=== PATIENT | female | born 1980 | race Caucasian/White ===

== ENCOUNTER → 2016-11-29 | Outpatient (CLI) | payer OTHER ==
[~2016-11-29] MED LIST: ALBU1AER9 INH; AMT50 PO; ATOR-24 PO; BUPRTAB51 PO; DICY1TAB25 PO; DIVA500T59 PO; FURO20TA PO; GEMF600T3 PO; INSU1.2I INJ; LEVO50TA PO; LIRA18IN SQ; LSN40 PO; METO-217 PO; METO1TAB54 PO; NVLGI/PEN SQ; OXYC-106 PO; POTA-327 PO; PRLSR20 PO; PRM625 PO; RANI300T2 PO; SIME1CAP PO; SITA50TA9 PO
[2016-11-29 17:52] LABS: CHOLESTEROL/HDL RATIO 13.6
== END | disposition home or self-care (01) ==
LOC: C.LAB1850 16:06
PROVIDERS: ATTEND Internal Medicine Cardiovascular Disease
DX: R60.9 Edema, unspecified (principal); E78.5 Hyperlipidemia, unspecified; E78.1 Pure hyperglyceridemia

== ENCOUNTER → 2016-12-03 | Outpatient (CLI) | payer OTHER | END | disposition home or self-care (01) | LOC: C.LABSPEC 09:14 | PROVIDERS: ATTEND Physician Assistant | DX: E11.9 Type 2 diabetes mellitus without complications (principal) ==

== ENCOUNTER 2017-07-11 09:46 | Day surgery (SDC) | payer OTHER ==
[2017-06-11 13:23] VITALS: BMI 39.0
[2017-06-30 10:57] VITALS: BMI 38.0
--- NOTE | 2017-07-10 08:51 | HISTORY & PHYSICAL EXAMINATION ---
DATE OF ADMISSION: 07/11/2017 CHIEF COMPLAINT: AC joint arthritis of the left shoulder. HISTORY OF PRESENT ILLNESS: Preethi is a 37-year-old female whom I have been seeing in the office with chronic left shoulder pain. It has been hurting her for over a year. Clinical examination and MRI were diagnostic for AC joint arthritis and external impingement of the left shoulder. After failing extensive conservative treatment including multiple injections, she has elected to proceed with a left shoulder arthroscopy. PAST MEDICAL HISTORY: Significant for non-insulin dependent diabetes, hyperlipidemia, hypertension, COPD and sleep apnea, she sleeps with oxygen at night, seizures, depression, hypothyroidism, obesity, GERD. MEDICATIONS: Include metformin 1000 mg twice a day, Reglan 5 mg as needed, Janumet 50 mg twice a day, prednisone 20 mg twice a day, albuterol 1 puff 4 times a day as needed, Celexa 10 mg daily, Florastor 250 mg twice a day, Singulair 10 mg at night, Lipitor 40 mg daily, Combivent inhaler twice a day, gemfibrozil 600 mg twice a day, Bentyl 20 mg twice a day, Naprosyn twice a day, baclofen twice a day as needed, Zantac 300 mg at night, Lyrica 150 mg twice a day, Victoza 1.8 mg once a day, omeprazole 40 mg daily, Carafate 1 gram 4 times a day, Depakote 500 mg 3 tabs at night, Zoloft 50 mg daily, trazodone 150 mg as needed, NovoLog 24 units with each meal, Wellbutrin 300 mg twice a day, Lasix 40 mg twice a day as needed, Synthroid 50 mcg daily, Mobic 15 mg as needed, Premarin daily, Lexapro 10 mg daily. ALLERGIES: INCLUDE AUGMENTIN, CIPRO, DROPERIDOL. PAST SURGICAL HISTORY: Significant for tonsillectomy, breast augmentation, appendectomy, cholecystectomy, hysterectomy and surgery to her left foot. SOCIAL HISTORY: She smokes a pack a day. Denies any alcohol or drug use. REVIEW OF SYSTEMS: She complains mostly of left shoulder pain. All other pertinent review of systems are negative. PHYSICAL EXAMINATION: GENERAL: She is awake, alert and oriented x3. She is in no apparent distress. She is very pleasant. HEENT: Pupils equal, round and reactive to light. Extraocular motion intact. Oral mucosa is pink and moist. HEART: Regular rate per radial pulse. LUNGS: Jemma symmetrically bilaterally with no audible breath sounds. ABDOMEN: Soft, nontender, nondistended. MUSCULOSKELETAL: On physical examination of the left shoulder, she has about 140 degrees of forward flexion and 140 degrees of abduction. She has 5/5 muscle strength throughout. She has negative belly press test. She has a lot of tenderness to palpation of the AC joint and subacromial space. MRI of the left shoulder does show signs of AC joint arthritis. The rotator cuff is intact. IMPRESSION: Acromioclavicular joint arthritis of the left shoulder with external impingement. PLAN: We will proceed with a left shoulder arthroscopy to include decompression and distal clavicle resection. Postoperatively, she will be placed in an arm sling and discharged to home on oral pain medications.
[~2017-07-11] VITALS: Ht 170.2 cm; Wt 110.5 kg
[~2017-07-11 09:46] MED LIST changes: -ALBU1AER9 INH; -AMT50 PO; +ATV/1 PO; -BUPRTAB51 PO; +CETI10TA84 PO; +CLINDAMYCIN 600 MG/54 ML D5W 54 ML IV SCH; +DEXAMETHASONE SOD INJ 4 MG/ML VIAL ONE; -DICY1TAB25 PO; +DICY20TA35 PO; +DSY/150 PO; +FAMOTIDINE 20 MG TAB PO SCH; +FLUO20CA35 PO; +FRS/40 PO; -FURO20TA PO; +INSDGI SC; -INSU1.2I INJ; +LACTATED RINGER'S 1000ML 1,000 ML IV SCH; +LACTATED RINGER'S 1000ML IV SCH; -LEVO50TA PO; +LEVO75TA PO; -LIRA18IN SQ; +MAGN500C PO; -METO-217 PO; +MONT1TAB3 PO; +NVLG SQ; -NVLGI/PEN SQ; +OMEG1CAP81 PO; -OXYC-106 PO; -POTA-327 PO; +POTA10CA28 PO; +PREG200C PO; +PROB1TAB19 PO; +ROPIVACAINE 0.5% 5 MG/ML 30 ML VIAL ONE; -SIME1CAP PO; +VNTHFA/IN INH; +[UNRECOGNIZED DRUG - CODE] PO
[2017-07-11] MEDS ORDERED: MEPERIDINE HCL 25 MG/ML CARP IV PRN (10:00)
[2017-07-11] MEDS ORDERED: LABETALOL HCL IV 5 MG/ML 20ML IV PRN (10:00)
[2017-07-11] MEDS ORDERED: FENTANYL CITRATE INJ 50 MCG/1 ML 2 ML VIAL IV PRN (10:00)
[2017-07-11] MEDS ORDERED: ATROPINE SULFATE 0.1 MG/ML 5ML SYR IV PRN (10:00)
[2017-07-11] MEDS ORDERED: ONDANSETRON INJ 2 MG/ML 2 ML VIAL IV PRN ×2 (10:00→14:00)
[2017-07-11] MEDS ORDERED: HYDROmorphone INJ 1 MG/ML SYR IV PRN (10:00)
[2017-07-11] MEDS ORDERED: EpHEDrine SULFATE INJ 50 MG/ML AMP IV PRN (10:00)
[2017-07-11 10:30] VITALS: BP 128/81; PULSE 92; TEMP 36.8; O2SAT 93; Ht 170.2 cm; Wt 110.5 kg
--- NOTE | 2017-07-11 10:35 | History & Physical Bridge Note ---
H&P Re-Evaluation Bridge Note: I have examined the patient, reviewed the History & Physical and in the interval since the performance of the History & Physical I have noted the following changes of clinical significance: No changes noted
--- NOTE | 2017-07-11 10:51 | DIAGNOSTIC IMAGING REPORT ---
CHEST 2 VIEWS ROUTINE CLINICAL HISTORY: PREOPERATIVE EXAM COMPARISON STUDY: No previous studies for comparison. FINDINGS: The bones soft tissues and hemidiaphragms are normal. The cardiomediastinal silhouette is normal. The lungs are clear. The pulmonary vasculature is normal. IMPRESSION: Negative chest. The above report was generated using voice recognition software. It may contain grammatical, syntax or spelling errors. Electronically signed by: Kevin Mcgregor M.D. 07/11/2017 10:50 AM Dictated Date/Time: 07/11/2017 10:41 AM
[2017-07-11] MEDS ORDERED: OXGN (11:19)
[2017-07-11] MEDS ORDERED: PROPOFOL IV EMULSION 10 MG/ML 20 ML VIAL IV ONE ×2 (11:55→13:17)
[2017-07-11] MEDS ORDERED: DEXAMETHASONE SOD INJ 4 MG/ML VIAL ONE (11:55)
[2017-07-11] MEDS ORDERED: FENTANYL CITRATE INJ 50 MCG/1 ML 2 ML VIAL ONE (11:55)
[2017-07-11] MEDS ORDERED: MIDAZOLAM HCL 1 MG/ML 2ML VIAL ONE ×2 (11:55)
[2017-07-11] MEDS ORDERED: LIDOCAINE HCL 2% 2 ML VIAL (20MG/ML) ONE (11:55)
[2017-07-11] MEDS ORDERED: ONDANSETRON INJ 2 MG/ML 2 ML VIAL ONE (11:55)
[2017-07-11] MEDS ORDERED: NovoLIN-R INSULIN PER UNIT CHARGE ONE (11:56)
[2017-07-11] MEDS ORDERED: NURSING VERBAL MED ORDER ONE (12:30)
[2017-07-11] MEDS ORDERED: BUPIVACAINE/EPINEPHRINE 0.5% MPF 1:200,000 30 ML VIAL ONE ×2 (12:35→12:36)
[2017-07-11] MEDS ORDERED: EpINEphrine HCL INJ 1 MG/ML 5ML SYRINGE ONE (12:37)
[2017-07-11] MEDS ORDERED: ROCURONIUM BROMIDE 10 MG/ML 5 ML VIAL IV ONE (13:14)
[2017-07-11] MEDS ORDERED: SUCCINYLCHOLINE CHLORIDE 20 MG/ML 10 ML VIAL IV ONE (13:14)
--- NOTE | 2017-07-11 13:54 | [facility] Post Operative Brief Note ---
Immediate Operative Summary Operative Date Jul 11, 2017. Pre-Operative Diagnosis Acromioclavicular Joint Arthritis of the Left Shoulder with External Impingement Post-Operative Diagnosis Acromioclavicular Joint Arthritis of the Left Shoulder with External Impingement Procedure(s) Performed Left Shoulder Arthroscopy Subacromial Decompression Distal Clavicle Resection Surgeon Dr. Richie Milan Supervisor Testing Surgeon(s) Chris Wooten PA-C Estimated Blood Loss 5ML Findings Consistent with Post-Op Diagnosis Specimens None per surgeon Drains None Anesthesia Type General Regional Disposition Disposition: Recovery Room / PACU
[2017-07-11] MEDS ORDERED: OXYC-57 PO (13:55)
[2017-07-11] MEDS ORDERED: SODIUM CHLORIDE 0.9% 1000ML 1,000 ML IV SCH (13:57)
--- NOTE | 2017-07-11 13:57 | Discharge Instructions ---
Discharge Instructions Date of Service Jul 11, 2017. Admission Reason for Admission: Left Shoulder Ac Joint Disorder, Impingement Syndr Discharge Discharge Diagnosis / Problem: SAME ABOVE Discharge Goals Goal(s): Decrease discomfort, Improve function Activity Recommendations Activity Limitations: as noted below Lifting Limitations: gradually increase as tolerated Exercise/Sports Limitations: gradually increase as tolerated Shower/Bathe: tomorrow . Instructions / Follow-Up Instructions / Follow-Up MEDICATIONS: * Resume previous medications unless instructed otherwise by your surgeon. * Always take pain medication on a full stomach or with food to avoid upset stomach. * Do not drink alcohol or drive while taking narcotics. * Ibuprofen or Tylenol may be taken if narcotic not needed. SPECIAL CARE INSTRUCTIONS: __ None _X_ Keep extremity elevated and iced x 48 hours; apply ice 20-30 minutes 8-10 times/day. May remove at night. _X_ Sling (WEAR FOR COMFORT ONLY) __24 hrs/day __ Remove at night __ Shoulder Immobilizer __ 24 hrs/day __ Remove at night _X_ Dressing __ Maintain until seen in office, may shower with plastic over site _X Remove dressings in 24-48 hours and then may shower __ Cover incisions with band-aids after showering __ Do not remove steri-strips Call physician if chills or temperature rises above 102 degrees or pain unrelieved by prescribed pain medications at . . Current Hospital Diet Patient's current hospital diet: Discharge Diet Recommended Diet: Diabetes Type 1 Diet Procedures Procedures Performed: Left Shoulder Arthroscopy Subacromial Decompression Distal Clavicle Resection Pending Studies Studies pending at discharge: no Work Instructions Return To Work: after follow-up Lifting Limitations: none Medical Emergencies . Who to Call and When: Medical Emergencies: If at any time you feel your situation is an emergency, please call 911 immediately. . Non-Emergent Contact Non-Emergency issues call your: Primary Care Provider Call Non-Emergent contact if: you have a fever, temperature is above 101.5 . "Provider Documentation" section prepared by Lakhwinder Wooten. . VTE Core Measure Inpt VTE Proph given/why not?: Treatment not indicated
[2017-07-11] MEDS ORDERED: OXYCODONE/ACETAMINOPHEN 5-325 TAB PO PRN ×2 (14:00)
--- NOTE | 2017-07-11 14:18 | OPERATIVE REPORT ---
DATE OF OPERATION: 07/11/2017 PREOPERATIVE DIAGNOSES: External impingement and acromioclavicular joint arthritis of the left shoulder. POSTOPERATIVE DIAGNOSES: Same. PROCEDURES: Left shoulder diagnostic arthroscopy with limited debridement, distal clavicle resection, and acromioplasty. SURGEON: Dr. Richie Milan. ASSEMBLER BRAZER: Chris Wooten PA-C, whose assistance was necessary for helping with instrumentation and closure. ANESTHESIA: General with a left interscalene nerve block. COMPLICATIONS: None. CONDITION: Stable to PACU. INDICATIONS: Preethi is a pleasant 37-year-old female who presented to my office with complaints of left shoulder pain. MRI and clinical examination were diagnostic for external impingement and AC joint arthritis. After failing extensive conservative treatment including several years of injections and therapy, she elected to undergo arthroscopy. DESCRIPTION OF PROCEDURE: On 07/11/2017, she arrived at [facility] for the above procedure. She was seen in the preoperative holding area and the operative extremity was identified and signed. She was given preoperative antibiotics and a left interscalene nerve block. She was taken back to the operating room, laid on the table in the supine position and put under general anesthesia. She was then put into the beach chair position. The left shoulder was prepped and draped in sterile fashion. Time-out was done and the patient's operative extremity was properly identified. A scope was placed in the posterior portal. Diagnostic arthroscopy showed no cartilage damage to the humeral head or the glenoid. There was a little fraying of the anterior labrum. The biceps tendon was intact and went through a normal size biceps malcolm mechanism. The supraspinatus, infraspinatus, teres minor, and subscapularis were all checked and intact. An anterior portal was made. A shaver was used to do a limited debridement of the intraarticular structures. The biceps tendon was pulled into the joint and there was no additional pathology. The scope was then put into the subacromial space. A lateral portal was made. A shaver was used to do a complete subacromial and subdeltoid bursectomy. An ablator was used to tease the coracoacromial ligament off the undersurface of the acromion and a 5-0 clemente was used to complete an acromioplasty of a Bigliani type 2 acromion. A shaver was used to remove any excess debris. The bursal side of the rotator cuff was examined extensively without evidence of tear. Attention was then turned to the distal clavicle. Through an anterior portal, a shaver and ablator were used to skeletonize the distal clavicle. A 5-0 clemente was then used to resect the distal 7 mm from the clavicle. Complete resection was checked under direct visualization. A shaver was used to remove any excess debris and final diagnostic arthroscopy showed no additional pathology. Arthroscopic instruments were removed from the shoulder. Portal sites were closed with 3-0 nylon. She was then placed in a soft dressing and a regular arm sling. She was then extubated, transferred to a litter and taken to the postanesthesia care unit in stable condition. She tolerated the procedure well. I attest to the content of the Intraoperative Record and any orders documented therein. Any exception s are noted below.
--- NOTE | 2017-07-11 14:42 | Anesthesiology Progress Note ---
Anesthesia Post Op Note Date & Time Jul 11, 2017 at 14:41 Vital Signs Pain Intensity: 0 Vital Signs Past 12 Hours Date Time Temp Pulse Resp B/P (MAP) Pulse Ox O2 Delivery O2 Flow Rate FiO2 07/11/17 14:35 123/78 07/11/17 14:30 36.6 98 18 155/97 98 Oxymask 10 07/11/17 14:20 98 18 161/110 98 Oxymask 10 07/11/17 14:10 95 18 139/84 97 Oxymask 10 07/11/17 14:04 36.0 104 18 144/88 95 Oxymask 10 07/11/17 10:30 36.8 92 20 128/81 (97) 93 Room Air Notes Mental Status: alert / awake / arousable, participated in evaluation Pt Amnestic to Procedure: Yes Nausea / Vomiting: adequately controlled Pain: adequately controlled Airway Patency, RR, SpO2: stable & adequate BP & HR: stable & adequate Hydration State: stable & adequate Anesthetic Complications: no major complications apparent
[2017-07-11 14:49] VITALS: BP 131/83; PULSE 91; TEMP 36.5; O2SAT 91
[2017-07-11 15:30] VITALS: BP 130/75; PULSE 93; TEMP 36.4; O2SAT 93
== END 2017-07-11 15:44 | disposition home or self-care (01) ==
LOC: C.ACU 09:46
PROVIDERS: ATTEND Orthopaedic Surgery
DX: M75.42 Impingement syndrome of left shoulder (principal); M19.012 Primary osteoarthritis, left shoulder; J44.9 Chronic obstructive pulmonary disease, unspecified; F17.200 Nicotine dependence, unspecified, uncomplicated; I10 Essential (primary) hypertension; E78.5 Hyperlipidemia, unspecified; E11.9 Type 2 diabetes mellitus without complications; K21.9 Gastro-esophageal reflux disease without esophagitis; G47.30 Sleep apnea, unspecified; E03.9 Hypothyroidism, unspecified; E66.9 Obesity, unspecified; F32.9 Major depressive disorder, single episode, unspecified; Z79.4 Long term (current) use of insulin; Z90.710 Acquired absence of both cervix and uterus; Z90.49 Acquired absence of other specified parts of digestive tract; Z83.3 Family history of diabetes mellitus; Z80.3 Family history of malignant neoplasm of breast